=== PATIENT | female | born 1960 | race Caucasian/White ===

== ENCOUNTER 2016-11-05 21:38 | Inpatient (IN) | payer MEDICAID ==
[~2016-11-05] VITALS: Ht 157.5 cm; Wt 89.0 kg
[~2016-11-05 21:38] MED LIST: ADVAIR 250/5028 PUFF IN; BACTRIM DS 8001 TAB PO; CELEXA 20MG TAB20 MG PO; CELEXA20 M1 PO; CIPRO 250MG TA250 MG PO; CIPRO 500MG TA500 MG PO; CITALOPRAM20 MG PO; FLAGYL 500MG.500 MG PO; FLEXERIL10 MG PO; GABAPENTIN800 MG PO; HYDROXYZINE HCL25 MG PO; INDOCIN25 M2 PO; KEFLEX 500MG.500 MG PO; LISINOPRIL 10MG10 MG PO; LORTAB 5/500 501 TAB PO; LORTAB 500 MG-71 TAB PO; MEDROL 4MG. DOSE4 MG PO; METOPROLOL SUCC50 M1 PO; METOPROLOL25 MG PO; MIRTAZAPINE30 MG PO; MUCINEX1200 MG PO; Mobic7.5 MG PO; NAPROSYN 500MG500 MG PO; NAPROXEN SODIU500 MG PO; NEURONTIN600 MG PO; NEURONTIN800 MG PO; NICOTINE T21 MG/24 H TD; NITROGLYCERIN0.4 MG SL; NOMEDS XX; NORCO 325 MG-101 TAB PO; OMNICEF 300 MG300 MG PO; OXYCODONE SR 2020 MG PO; OXYCODONE SR 4040 MG PO; PHENERGAN 25MG.25 M1 PO; PREDNISONE 10MG10 MG PO; PREDNISONE 20MG20 MG PO; PREDNISONE20 MG PO; PROMETHAZINE D120 ML PO; PYRIDIUM100 M1 PO; SOMA 350MG TAB350 MG PO; TRAMADOL 50MG T50 MG PO; ULTRAM50 MG PO; VALTREX1 GM PO; VENTOLIN H0.09 MG/AC IH; VICODIN 5/500 T1 TAB PO; VICODIN 7.5/501 EACH PO; VISTARIL25 MG PO; ZITHROMAX Z PA250 MG PO; ZOLOFT 50MG TAB50 MG PO
[2016-11-05 21:42] VITALS: BP 188/80
[2016-11-05] MEDS ORDERED: HYDROXYZINE PAM25 MG PO (21:49)
--- OUTSIDE RECORDS SUMMARY | 2016-11-05 21:57 | External Medical Summary Rpt ---
Demographics Preferred Language Dutch Marital Status Unknown Caodaism Affiliation Unknown Race Unknown Ethnic Group Unknown Author Author , Organization [employer] Address Unknown Phone Unavailable Purpose Continuity of Care Document - through 2016 Immunization No patient found.
--- OUTSIDE RECORDS SUMMARY | 2016-11-05 21:57 | External Medical Summary Rpt ---
Author Author [employer] Organization [employer] Address Unknown Phone Unavailable Purpose Continuity of Care Document - through 2016
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
--- OUTSIDE RECORDS SUMMARY | 2016-11-05 21:57 | External Medical Summary Rpt ---
Demographics Preferred Language Solomon Islander Marital Status Unknown Catholic Affiliation Unknown Race Unknown Ethnic Group Unknown Author Author , Organization [employer] Address Unknown Phone Unavailable Purpose Continuity of Care Document - through 2016 Immunization No patient found.
--- OUTSIDE RECORDS SUMMARY | 2016-11-05 21:57 | External Medical Summary Rpt ---
Author Author [employer]LE Muller, [employer] Organization [employer] Address Unknown Phone Unavailable
[2016-11-05 22:16] LABS: HEMOGLOBIN 15.9 g/dL (12.2-16.2); LYMPH # 1.6 K/mm3 (0.7-4.5); LYMPH % 16.6 % (10-50.0)
[2016-11-05 22:29] LABS: BUN 7 mg/dL (7-18)
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
[2016-11-05 22:33] LABS: GFR (ESTIMATED) 74 ML/MIN (59-)
[2016-11-05 23:39] LABS: ALLEN'S TEST ACCEPTABLE; ARTERIAL ABE -1.7 MMOL/L (-2.4-+2.3); ARTERIAL PO2 64.8 MMHG (80-100); ARTERIAL TCO2 21.4 MMOL/L (23-27); OXYGEN ROOM AIR
[2016-11-06] VITALS (8 sets, daily range): BP systolic 109–149; BP diastolic 57–90
[2016-11-06 06:45] LABS: LYMPH # 0.7 K/mm3 (0.7-4.5); LYMPH % 10.1 % (10-50.0)
[2016-11-06 07:07] LABS: BUN 7 mg/dL (7-18)
[2016-11-06 07:13] LABS: GFR (ESTIMATED) 65 ML/MIN (59-)
[2016-11-06 07:20] LABS: HEMOGLOBIN 14.1 g/dL (12.2-16.2)
--- NOTE | 2016-11-06 08:03 | PHARMACY CLINIC NOTE ---
Patient Demographics Patient Demographics Admission date: 11/06/16 Date: 11/06/16 Time: 0803 Allergies Coded Allergies: codeine (Mild, 08/26/15) erythromycin base (Mild, 08/26/15) tetracycline (Mild, 08/26/15) acetaminophen (From TYLENOL) (NA-NAUSEA 05/22/16) HEIGHT- FT: 5 IN: 2.00 K.637 VTE General Information Labs: Laboratory Tests 11/06 11/05 0625 2155 Hematology Hgb (12.2 - 16.2 g/dL) 14.1 15.9 Hct (37.0 - 47.0 %) 42.9 48.3 H Plt Count (142 - 424 K/mm3) 205 211 Disclaimer The following section includes nursing documentation that has been pulled in for pharmacy review. Patient's VTE score: 5 Patient's VTE Risk: LOW RISK Clinical trial participant? No VTE prophylaxis NQF [id number] VTE prophylaxis ordered? No Type of prophylaxis/treatment: MUKESH at 0803
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
[2016-11-06 09:58] LABS: NEUTROPHILS 85 % (42-76)
--- NOTE | 2016-11-06 10:51 | RADIOLOGY REPORT PS360 ---
CHEST-PORTABLE COMPARISON: PA and lateral chest 08/12/2016 HISTORY: Shortness of breath TECHNIQUE: Portable semiupright chest FINDINGS: The lung betancourt are well expanded and appear clear of infiltrate. The cardiac silhouette and vascularity are normal and is no definite pleural fluid seen. IMPRESSION: Negative portable chest
--- NOTE | 2016-11-06 12:16 | RADIOLOGY REPORT PS360 ---
CTA -CHEST COMPARISON: CT angiogram of chest 10/14/2014 HISTORY: Suspect pneumonia TECHNIQUE: Multiaxial scans obtained from the upper chest to the hemidiaphragms after rapid injection of IV contrast. Sagittal and coronal reformats were evaluated as well. FINDINGS: The lung betancourt are well expanded. There is excellent vascular opacification and there is no CT evidence of pulmonary emboli. Lung windows show focal pneumonic infiltrate with air bronchograms left upper lobe laterally. There is a focal small pneumonic infiltrate in the right middle lobe and minimal infiltrate subpleural location. Segment right lower lobe. Cardiac size is normal. There is no pleural fluid. IMPRESSION: 1. Negative for PE 2. Bilateral somewhat ill-defined pneumonic infiltrates
--- NOTE | 2016-11-06 12:42 | ACUTE CARE PROGRESS NOTE (QUA) ---
Progress Notes Subjective Date 11/06/16 Time 1238 Note Patient still is having some chest pain. She just had her CT chest done. She specifically asked for Demerol for pain. Objective Reviewed: vital signs, radiology report Assessment/Plan Problem List 1. CAP (community acquired pneumonia) Status: Acute 2. Chronic obstructive pulmonary disease with (acute) exacerbation Status: Acute 3. Lumbar back pain with radiculopathy affecting right lower extremity Status: Chronic 4. Hypertension Status: Chronic 5. Anxiety Status: Chronic 6. PTSD (post-traumatic stress disorder) Status: Chronic 7. Tobacco use Status: Chronic 8. Chest pain Status: Acute This inpt stay is expected to cross 2 MNs from start of care Yes Comments: Continue treatment for CAP, CT scan negative for PE. Add Toradol for pain, do not plan to use Demerol for pain control. at 1240
[2016-11-07] VITALS (9 sets, daily range): BP systolic 120–157; BP diastolic 49–92
--- NOTE | 2016-11-07 08:12 | ACUTE CARE PROGRESS NOTE (QUA) ---
Progress Notes Subjective Date 11/07/16 Time 0808 Note Pt states she still feels awful today. She is still coughing but it is not productive. Her lungs feel tight. She did not rest well and tried to eat a little breakfast. Objective Findings Last VS-Temp:98.2 B/P:134/71 Pulse:78 Resp:20 SaO2:96 ROOM AIR Last weight lbs:195 oz:3 K.536 Method:Bed Scales Exam General appearance: alert, awake, no acute distress Cardiovascular: regular rate & rhythm Respiratory: inspiratory and expiratory wheezes bilaterally, no rales ABD: non-distended, normal bowel sounds, no rebound, soft, no tenderness, no guarding Extremities: no peripheral edema Reviewed: CTA - no PE, there is pneumonia Assessment/Plan Problem List 1. CAP (community acquired pneumonia) Status: Acute 2. Chronic obstructive pulmonary disease with (acute) exacerbation Status: Acute 3. Lumbar back pain with radiculopathy affecting right lower extremity Status: Chronic 4. Hypertension Status: Chronic 5. Anxiety Status: Chronic 6. PTSD (post-traumatic stress disorder) Status: Chronic 7. Tobacco use Status: Chronic 8. Chest pain Status: Acute Plan: Will continue current care. This inpt stay is expected to cross 2 MNs from start of care Yes (Catalina Moya) Assessment/Plan Problem List 1. CAP (community acquired pneumonia) Status: Acute 2. Chronic obstructive pulmonary disease with (acute) exacerbation Status: Acute 3. Lumbar back pain with radiculopathy affecting right lower extremity Status: Chronic 4. Hypertension Status: Chronic 5. Anxiety Status: Chronic 6. PTSD (post-traumatic stress disorder) Status: Chronic 7. Tobacco use Status: Chronic 8. Chest pain Status: Acute Comments: Patient seen and agree with above note. She is a little better today. (Odilon Avila MD) at 0811 at 0836
[2016-11-08] VITALS (7 sets, daily range): BP systolic 135–158; BP diastolic 71–97
--- NOTE | 2016-11-08 08:20 | ACUTE CARE PROGRESS NOTE (QUA) ---
Progress Notes Subjective Date 11/08/16 Time 0817 Note Patient states she sounds better today but is not feel much better. She still hurts all across her chest. She is still coughing but it is nonproductive. Her wheezing has improved slightly. She slept off and on last night. Objective Findings Last VS-Temp:97.6 B/P:143/71 Pulse:81 Resp:20 SaO2:93 ROOM AIR Last weight lbs:194 oz:4 K.11 Method:Bed Scales Exam General appearance: alert, awake, no acute distress Cardiovascular: regular rate & rhythm Respiratory: better air movement on the anterior chest, less wheezing posteriorly, no rales ABD: non-distended, normal bowel sounds, no rebound, soft, no tenderness, no guarding Extremities: no peripheral edema Assessment/Plan Problem List 1. CAP (community acquired pneumonia) Status: Acute 2. Chronic obstructive pulmonary disease with (acute) exacerbation Status: Acute 3. Lumbar back pain with radiculopathy affecting right lower extremity Status: Chronic 4. Hypertension Status: Chronic 5. Anxiety Status: Chronic 6. PTSD (post-traumatic stress disorder) Status: Chronic 7. Tobacco use Status: Chronic 8. Chest pain Status: Acute Plan: Will continue current care. Patient improving. Possible disposition soon. This inpt stay is expected to cross 2 MNs from start of care Yes (Catalina Moya) Assessment/Plan Problem List 1. CAP (community acquired pneumonia) Status: Acute 2. Chronic obstructive pulmonary disease with (acute) exacerbation Status: Acute 3. Lumbar back pain with radiculopathy affecting right lower extremity Status: Chronic 4. Hypertension Status: Chronic 5. Anxiety Status: Chronic 6. PTSD (post-traumatic stress disorder) Status: Chronic 7. Tobacco use Status: Chronic 8. Chest pain Status: Acute Comments: Patient seen and agree with above note. She is slowly improving. Start Pepcid due to morning nausea. (Odilon Avila MD) at 0820 at 0836
[2016-11-09 04:19] VITALS: BP 144/81
[2016-11-09 07:06] LABS: HEMOGLOBIN 13.3 g/dL (12.2-16.2); LYMPH % 16.9 % (10-50.0)
[2016-11-09 08:00] VITALS: BP 140/63
--- NOTE | 2016-11-09 08:13 | ACUTE CARE PROGRESS NOTE (QUA) ---
Progress Notes Subjective Date 11/09/16 Time 0811 Note Patient states she is still having chest pain today. She thinks she is breathing slightly better. She still has some wheezing and did cough off and on all night. Objective Findings Last VS-Temp:97.6 B/P:144/81 Pulse:69 Resp:22 SaO2:94 ROOM AIR Last weight lbs:196 oz:5 K.046 Method:Bed Scales Laboratory Tests 11/09/16 0625: Sodium 137, Potassium 4.8, Chloride 105, Carbon Dioxide 27, BUN 29 H, Creatinine 0.8, Estimated Creat Clear 110, Estimated GFR (MDRD) 74, Glucose 121 H, Calcium 8.6, WBC 6.1, RBC 4.33, Hgb 13.3, Hct 42.0, MCV 97.1, RDW 13.2, Plt Count 244, MPV 6.8 L, Gran % 77.6, Gran # 4.8, Lymphocytes % 16.9, Monocytes % 5.0, Eosinophils % 0.2, Basophils % 0.2, Lymphocytes # 1.0, Monocytes # 0.3, Eosinophils # 0.0, Basophils # 0.0, PUBS MCHC 31.7 L, MCH 30.8 Exam General appearance: alert, awake, no acute distress Cardiovascular: regular rate & rhythm Respiratory: expiratory wheezes, no rales ABD: non-distended, normal bowel sounds, no rebound, soft, no tenderness, no guarding Extremities: no peripheral edema Assessment/Plan Problem List 1. CAP (community acquired pneumonia) Status: Acute 2. Chronic obstructive pulmonary disease with (acute) exacerbation Status: Acute 3. Lumbar back pain with radiculopathy affecting right lower extremity Status: Chronic 4. Hypertension Status: Chronic 5. Anxiety Status: Chronic 6. PTSD (post-traumatic stress disorder) Status: Chronic 7. Tobacco use Status: Chronic 8. Chest pain Status: Acute Plan: Home soon. Will discuss with Dr. Avila. This inpt stay is expected to cross 2 MNs from start of care Yes (Catalina Moya) Assessment/Plan Problem List 1. CAP (community acquired pneumonia) Status: Acute 2. Chronic obstructive pulmonary disease with (acute) exacerbation Status: Acute 3. Lumbar back pain with radiculopathy affecting right lower extremity Status: Chronic 4. Hypertension Status: Chronic 5. Anxiety Status: Chronic 6. PTSD (post-traumatic stress disorder) Status: Chronic 7. Tobacco use Status: Chronic 8. Chest pain Status: Acute Comments: Patient seen and agree with above note. OK to discharge today, f/u with new primary MD in the next 2 weeks. (Odilon Avila MD) Antibiotic Stewardship (2) Current Culture Results Microbiology 11/05 2154 BLOOD: Anaerobic Blood Culture - RES 11/05 2154 BLOOD: Aerobic Blood Culture - RES Infxn that will respond? Yes Right drug,dose,and route? Yes More targeted antbx? No How long atbx needed? 10 (Catalina Moya) at 0813 at 0848
[2016-11-09 08:17] VITALS: BP 144/81
[2016-11-09] MEDS ORDERED: LEVAQUIN500 MG PO (08:50)
[2016-11-09] MEDS ORDERED: DEXAMETHASONE4 MG PO (08:51)
[2016-11-09] MEDS ORDERED: PROMETHAZINE D240 ML PO (08:52)
[2016-11-09 17:00] VITALS: BP 144/81
--- NOTE | 2016-11-15 09:02 | DISCHARGE SUMMARY STANDARD ---
Discharge Summary (FCA2) Date of admission: 11/06/16 Date of discharge: 11/09/16 Problem List: 1. CAP (community acquired pneumonia) 2. Chronic obstructive pulmonary disease with (acute) exacerbation 3. Lumbar back pain with radiculopathy affecting right lower extremity 4. Hypertension 5. Anxiety 6. PTSD (post-traumatic stress disorder) 7. Tobacco use 8. Chest pain History of present illness: Ms. Cam is a 56-year-old female patient of Dr. Pedro who has a medical history consistent with chronic obstructive pulmonary disease, hypertension, anxiety, PTSD, and chronic low back pain. She stated for the 2 days prior to admission she had felt awful. She had had chest pain across her chest, a cough, fever, and chills. She stated she presented to the emergency room and they diagnosed her with pneumonia and she was admitted. Her main complaint was of her pain in her chest. She stated that Dilaudid and morphine had never worked for her and she needed some Demerol. Of note, she also had bed bugs upon admission. Exam on admission: General appearance: alert, awake, no acute distress Eyes: PERRLA ENT: nose normal, pharynx normal, dry mucous membranes Neck: non-tender, full range of motion, supple Cardiovascular: regular rhythm, tachycardic Respiratory: inspiratory and expiratory wheezing bilaterally, no rales ABD: non-distended, normal bowel sounds, no rebound, soft, no tenderness, no guarding Extremities: trace pretibial edema bilaterally Musculoskeletal: equal muscle strength, motor intact, sensation intact Skin: normal color Neuro: oriented, speech clear Hospital Course: She was started on abx and steroids as well as duonebs d/t wheezing. Her CXR was normal and a CTA of chest was ordered due to possible PE with recent leg edema, chest pain and shortness of breath. It was negative for PE but did show bilateral somewhat ill-defined pneumonic infiltrates. She was started on toradol for pain. She improved slowly throughout her stay but continued to c/o pain across her chest. Her wheezing and SOA improved and she was stable to be discharged home on 11/09/16 on levaquin, dexamethasone, and cough medication. She will need to f/u with a new PCP. Discharge medications: Continue taking these medications: Gabapentin (Gabapentin 800MG) 800 MG TABLET 800 MILLIGRAM ORAL FOUR TIMES A DAY Qty = 60 Metoprolol Tartrate (Metoprolol) 25 MG TABLET 25 MILLIGRAM ORAL TWICE A DAY Cyclobenzaprine Hcl (Flexeril) 10 MG TABLET 10 MILLIGRAM ORAL THREE TIMES A DAY Citalopram Hydrobromide (Celexa) 20 MG TABLET 20 MILLIGRAM ORAL DAILY Mirtazapine (Mirtazapine) 30 MG TABLET 30 MILLIGRAM ORAL AT BEDTIME NIGHTLY ALBUTEROL (Ventolin Hfa) 8 GM HFA.AER.AD 2 PUFF INHALATION THREE TIMES A DAY NEEDED as needed for BREATHING FLUTICASONE/SALMETEROL (Advair 250-50 Diskus) 1 EACH BLST.W.DEV 1 PUFFS IN VITRO EVERY 12 HOURS 0600/1800 Qty = 1 Hydroxyzine Pamoate (Hydroxyzine Pamoate) 25 MG CAPSULE 25 MILLIGRAM ORAL THREE TIMES A DAY Qty = 90 Start taking the following new medications: Levofloxacin (Levaquin 500MG) 500 MG TABLET 500 MILLIGRAM ORAL DAILY Qty = 7 No Refills Dexamethasone (Dexamethasone) 4 MG TABLET 4 MILLIGRAM ORAL TWICE A DAY Qty = 10 No Refills PROMETHAZINE/DEXTROMETHORPHAN (Promethazine-Dm Syrup) 240 ML SYRUP 5 MILLILITER ORAL EVERY 6 HOURS NEEDED as needed for COUGH Qty = 240 No Refills Disposition: F/U with: OTHER Follow up: 2 WEEKS Activity: Cont Current activity Diet: Continue same diet Discharge to: HOME Agency needed? N at 0902
== END 2016-11-09 17:15 | disposition home or self-care (01) | DRG 190 ==
LOC: ER 21:38 → 2ND 23:34
PROVIDERS: Emergency Medicine; Family Medicine
DX: J44.1 Chronic obstructive pulmonary disease with (acute) exacerbation (principal); J18.9 Pneumonia, unspecified organism; I10 Essential (primary) hypertension; Z72.0 Tobacco use; F43.10 Post-traumatic stress disorder, unspecified; M54.16 Radiculopathy, lumbar region
CPT/HCPCS: J0456; J2405; Q9967

== ENCOUNTER 2017-05-11 17:02 | Emergency (ER) | payer MEDICAID ==
[~2017-05-11] VITALS: Ht 157.5 cm; Wt 84.8 kg
[~2017-05-11 17:02] MED LIST changes: +BUPROPION HYDR150 M1 PO; +DEXAMETHASONE4 MG PO; +HABITROL21 MG/24 H TD; +HYDROXYZINE PAM25 MG PO; +IBUPROFEN600 MG PO; +LEVAQUIN500 MG PO; +PROMETHAZINE D240 ML PO; +TRAMADOL 50MG T50 M1 PO
--- OUTSIDE RECORDS SUMMARY | 2017-05-11 17:11 | External Medical Summary Rpt | CCD ---
Demographics Preferred Language Chilean Marital Status Unknown Episcopal Affiliation Unknown Race Unknown Ethnic Group Unknown Author Author , ISABELLE WALTON Address Unknown Phone Immunization No patient found.
--- OUTSIDE RECORDS SUMMARY | 2017-05-11 17:11 | External Medical Summary Rpt | CCD ---
Author Author , ISABELLE WALTON Address Unknown Phone [email or web address] Purpose Continuity of Care Document - through 2016 Problems Code Diagnosis DOS Provider Status B02.9 ZOSTER WITHOUT COMPLICATIO NS J18.9 PNEUMONIA, UNSPECIFIED ORGANISM J20.9 ACUTE BRONCHITIS, UNSPECIFIED J40 BRONCHITIS, NOT SPECIFIED ACUTE OR CHRONIC J44.1 CHRONIC OBSTRUCTIVE PULMONARY DISEASE W (ACUTE) EXACERBATIO N R07.9 CHEST PAIN, UNSPECIFIED R09.1 PLEURISY R10.9 UNSPECIFIED ABDOMINAL PAIN
--- OUTSIDE RECORDS SUMMARY | 2017-05-11 17:11 | External Medical Summary Rpt | CCD ---
Demographics Preferred Language [place]guillan Marital Status Unknown Hindu Affiliation Unknown Race Unknown Ethnic Group Unknown Author Author , ISABELLE WALTON Address Unknown Phone Immunization No patient found.
--- OUTSIDE RECORDS SUMMARY | 2017-05-11 17:11 | External Medical Summary Rpt | CCD ---
Author Author , ISABELLE WALTON Address Unknown Phone [email or web address] Purpose Continuity of Care Document - through 2016 Problems Code Diagnosis DOS Provider Status B02.9 ZOSTER WITHOUT COMPLICATIO NS J18.9 PNEUMONIA, UNSPECIFIED ORGANISM J20.9 ACUTE BRONCHITIS, UNSPECIFIED J40 BRONCHITIS, NOT SPECIFIED ACUTE OR CHRONIC J44.1 CHRONIC OBSTRUCTIVE PULMONARY DISEASE W (ACUTE) EXACERBATIO N R07.9 CHEST PAIN, UNSPECIFIED R09.1 PLEURISY R10.9 UNSPECIFIED ABDOMINAL PAIN
[2017-05-11] MEDS ORDERED: NAPROSYN 500MG500 MG PO (17:58)
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
[2017-05-11 18:16] VITALS: BP 149/74
--- NOTE | 2017-05-11 21:05 | RADIOLOGY REPORT PS360 ---
FOREARM-RT HISTORY: Posttraumatic pain DROPPED AC UNIT ON IT ORDERING PHYSICIAN: JAYSON CERVANTES PATIENT AGE: 56 years COMPARISON: None FINDINGS: No obvious fracture, dislocation, lytic change or blastic change. Normal mineralization. Unremarkable soft tissues IMPRESSION: Negative forearm
== END 2017-05-11 18:19 | disposition home or self-care (01) ==
LOC: UTC 17:02
DX: S50.11XA Contusion of right forearm, initial encounter (principal); W22.8XXA Striking against or struck by other objects, initial encounter; I10 Essential (primary) hypertension; J44.9 Chronic obstructive pulmonary disease, unspecified; F41.8 Other specified anxiety disorders; F17.210 Nicotine dependence, cigarettes, uncomplicated